=== PATIENT | female | born 1955 | race Caucasian/White ===

== ENCOUNTER 2024-04-04 18:16 | Inpatient (IN) | payer MEDICARE, BC ==
[~2024-04-04] VITALS: Ht 160 cm; Wt 88.2 kg
--- NOTE | 2024-04-04 18:41 | ED.PDOC ---
HPI Comments This is a 68-year-old female who comes in with chief complaint of chest pain. The patient states that the chest pressure started on 03/23. She states that she went to an urgent care on 03/28 at an EKG and some other tests that were done were negative. The patient states that the chest pain is somewhat pressure-like and radiating towards the left neck as well as the left shoulder. She denies any fever or chills. She states that she is going to be flying soon and she wants to make sure that she is clear. She denies any leg pain Chief Complaint: Chest Pain Time Seen by MD: 18:20 Primary Care Provider: [facility] IN [facility] Reviewed Notes: Nurses Notes, Medications, Allergies (Allergies to albuterol) Allergies: Coded Allergies: Albuterol (Verified Allergy, Unknown, 04/04/24) Information Source: Patient Mode of Arrival: Ambulatory Severity: Moderate Timing: Days Duration: Intermittent Prehospital treatment: None Location: Chest (L) Radiation: Shoulder (L), Arm (L) Quality: Squeezing, Pressure Onset: At Rest Cardiac Risk Factors: Hyperlipidemia, HTN PE Risk Factors: None History of: Similar pain in past Modifying Factors: Nothing Associated Signs and Symptoms: SOB, Other (Fatigue) Past Medical History PAST MEDICAL HISTORY: High Lipids, HTN Surgical History: Tonsillectomy Surgical History (Other): Left hip replacement, right knee surgery CODE INSPECTOR History: No Pertinent CODE INSPECTOR History Family History Family History: Family hx of DM, Family hx of heart philip Social History Smoker: Non-Smoker Alcohol: Occasionally Drugs: Denies Drug Use Lives In: Home Constitutional: reports: weakness; denies: chills, diaphoresis, fatigue, fever, malaise, sweats, others EENTM: denies: blurred vision, double vision, ear bleeding, ear discharge, ear drainage, ear pain, ear ringing, eye pain, eye redness, hearing loss, mouth pain, mouth swelling, nasal discharge, nose bleeding, nose congestion, nose pain, photophobia, tearing, throat pain, throat swelling, voice changes, others Respiratory: reports: shortness of breath; denies: cough, hemoptysis, orthopnea, SOB at rest, SOB with excertion, stridor, wheezing, others Cardiovascular: reports: chest pain; denies: dizzy spells, diaphoresis, Dyspnea on exertion, edema, irregular heart beat, left arm pain, lightheadedness, palpitations, PND, syncope, others Gastrointestinal: denies: abdomen distended, abdominal pain, blood streaked bowels, constipated, diarrhea, dysphagia, difficulty swallowing, hematemesis, melena, nausea, poor appetite, poor fluid intake, rectal bleeding, rectal pain, vomiting, others Genitourinary: denies: abnormal vagina bleeding, burning, dyspareunia, dysuria, flank pain, frequency, hematuria, incontinence, pain, , vagina discharge, urgency, others Neurological: denies: dizziness, fainting, headache, left sided numbness, left sided weakness, numbness, paresthesia, pre-existing deficit, right sided numbness, right sided weakness, seizure, speech problems, tingling, tremors, weakness, others Musculoskeletal: denies: back pain, gout, joint pain, joint swelling, muscle pain, muscle stiffness, neck pain, others Integumetry: denies: bruises, change in color, change in hair/nails, dryness, laceration, lesions, lumps, rash, wounds, others Allergic/Immunocompromised: denies: Difficulty Healing, Frequent Infections, Hives, Itching, others Hematologic/Lymphatic: denies: anemia, blood clots, easy bleeding, easy bruising, swollen glands, others Endocrine: denies: excessive hunger, excessive sweating, excessive thirst, excessive urination, flushing, intolerance to cold, intolerance to heat, une xplained weight gain, unexplained weight loss, others Psychiatric: denies: anxiety, bipolar disorder, depression, hopeless, panic disorder, schizophrenia, sleepless, suicidal, others Physical Exam General Appearance: Moderate Distress HEENT: Normal ENT Inspection, Pharynx Normal, TMs Normal Neck: Full Range of Motion, Non-Tender, Normal, Normal Inspection Respiratory: Chest Non-Tender, Lungs Clear, No Accessory Muscle Use, No Respiratory Distress, Normal Breath Sounds Cardiovascular: No Edema, No JVD, No Murmur, No Gallop, Normal Peripheral Pulses, Regular Rate/Rhythm Breast Exam: Deferred Gastrointestinal: No Organomegaly, Non Tender, No Pulsatile Mass, Normal Bowel Sounds, Soft Genitalia: Deferred Pelvic: Deferred Rectal: Deferred Extremities: No calf tenderness, Normal capillary refill, Normal inspection, Normal range of motion, Non-tender, No pedal edema Musculoskeletal : Apperance: Normal Neurologic: Alert, compensator II-XII nml as Tested, No Motor Deficits, Normal Affect, Normal Mood, No Sensory Deficits Cerebellar Function: Normal Reflexes: Normal Skin: Dry, Normal Color, Warm Lymphatic: No Adenopathy EKG EKG : Pulse Rate (adult): 82 [place]: RAD Cardiac Rhythm: NSR ST: Nonsp Was a procedure done? Was a procedure done?: No CP Differential Dx Differential Diagnosis: Angina, Electrolyte Disorder, PR, Pulmonary Embolus Differential Diagnosis: CHF Differential Diagnosis: Pericarditis X-Ray, Labs, Meds, VS Vital Signs Date Time Temp Pulse Resp B/P (MAP) Pulse Ox O2 Delivery O2 Flow Rate FiO2 04/04/24 19:10 80 04/04/24 18:57 82 18 97 Room Air* 0 21 04/04/24 18:56 98.2 82 18 157/92 (113) 97 98.2 04/04/24 18:41 82 04/04/24 18:21 82 04/04/24 18:19 97.6 89 18 141/88 (105) 98 Lab Test 04/04/24 19:13 04/04/24 18:28 Range/Units Troponin I High Sensitivity 5 5 </=34 ng/L White Blood Count 4.3 L 4.4-10.8 10^3/uL Red Blood Count 4.66 4.0-5.20 10^6/uL Hemoglobin 14.6 12.2-16.2 g/dL Hematocrit 44.2 36.0-46.0 % Mean Corpuscular Volume 95.0 80.0-100.0 fL Mean Corpuscular Hemoglobin 31.4 28.0-32.0 pg Mean Corpuscular Hemoglobin Concent 33.1 32.0-36.0 g/dL Red Cell Distribution Width 13.1 11.8-14.3 % Platelet Count 303 140-450 10^3/uL Mean Platelet Volume 7.5 6.9-10.8 fL Neutrophils (%) (Auto) 41.4 37.0-80.0 % Lymphocytes (%) (Auto) 47.0 10.0-50.0 % Monocytes (%) (Auto) 8.8 0.0-12.0 % Eosinophils (%) (Auto) 2.3 0.0-7.0 % Basophils (%) (Auto) 0.5 0.0-2.0 % Neutrophils # (Auto) 1.8 1.6-8.6 10 ^3/uL Lymphocytes # (Auto) 2.0 0.4-5.4 10 ^3/uL Monocytes # (Auto) 0.4 0-1.3 10 ^3/uL Eosinophils # (Auto) 0.1 0-0.8 10 ^3/uL Basophils # (Auto) 0 0-0.2 10 ^3/uL Nucleated Red Blood Cells 0.1 % D-Dimer, Quantitative 0.39 0.0-0.49 mg/L FEU Sodium Level 140 136-145 mmol/L Potassium Level 4.2 3.5-5.1 mmol/L Chloride Level 103 98-107 mmol/L Carbon Dioxide Level 31 20-31 mmol/L Anion Gap 6 5-15 Blood Urea Nitrogen 19 9-23 mg/dL Creatinine 0.83 0.550-1.02 mg/dL Glomerular Filtration Rate Calc 76 >90 mL/min BUN/Creatinine Ratio 22.9 H 10.0-20.0 Serum Glucose 109 H 74-106 mg/dL Calcium Level 10.4 8.7-10.4 mg/dL Total Bilirubin 0.6 0.2-1.0 mg/dL Aspartate Amino Transferase (AST) 16 13-40 U/L Alanine Aminotransferase (ALT) 25 7-40 U/L Alkaline Phosphatase 89 46-116 U/L Total Protein 7.1 5.7-8.2 g/dL Albumin 5.0 H 3.2-4.8 g/dL Current Medications Medications (Trade) Dose Ordered Sig/Jose De Jesus Route Start Time Stop Time Status Last Admin Aspirin 162 mg ONCE ONCE PO 04/04/24 18:45 04/04/24 18:46 DC 04/04/24 18:55 The patient was given aspirin here in the emergency department's An IV Hep-Lock was established. The troponin level x2 is negative The D-dimer is negative The chemistry panel is within normal limits Because of the persistent chest pain we are going to admit the patient to the hospitalist A cardiology consult will be obtained Images Reviewed?: Images reviewed and evaluated by me Time of 1ST Reevaluation: 18:41 Reevaluation 1ST: Unchanged Patient Education/Counseling: Diagnosis, Treatment, Prognosis Family Education/Counseling: No Family Present Departure 1 Departure Time of Disposition: 21:05 Impression: Primary Impression: Acute coronary syndrome Disposition: 09 ADMITTED INPATIENT Admit to: Tele Condition: Fair Critical Care Note Critical Care Time?: No Stability Stability form required: Yes Unstable for transfer: Telemetry monitoring (Telemetry monitoring required), ED Physician Assesment (Clinical assesment) Heart Score Heart Score: Heart Score Response (Comments) Value History Moderate Suspicious 1 EKG Repolarization Disturb 1 Age >65 2 Risk Factors >3 or Hx ASHD 2 Troponin Normal limit 0 Total 6 JEYSON IVEY MD Apr 04, 2024 18:41
--- NOTE | 2024-04-04 18:42 | DVH ---
CHEST RADIOGRAPH Indication: CP Technique: Single frontal view of the chest was obtained Comparison: None FINDINGS: Lines and Tubes: None Lungs: No focal consolidation. Pleura: No effusion. No pneumothorax. Cardiomediastinal contours: Unremarkable Bones: No acute osseous abnormality. IMPRESSION: No acute cardiopulmonary disease.
[2024-04-04] MEDS: ASPirin 81 mg TAB PO ONE (18:55)
[2024-04-04 18:57] VITALS: PULSE 82; RESP 18; O2SAT 97
[2024-04-04 19:01] LABS: Basophils # (auto) 0 10 ^3/uL (0-0.2); Basophils % (auto) 0.5 % (0.0-2.0); Eosinophils # (auto) 0.1 10 ^3/uL (0-0.8); Eosinophils % (auto) 2.3 % (0.0-7.0); Hematocrit 44.2 % (36.0-46.0); Hemoglobin 14.6 g/dL (12.2-16.2); Mean Corpuscular Hemoglobin 31.4 pg (28.0-32.0); Mean Corpuscular Hgb Conc. 33.1 g/dL (32.0-36.0); Monocytes # (auto) 0.4 10 ^3/uL (0-1.3); Monocytes % (auto) 8.8 % (0.0-12.0); Neutrophils # (auto) 1.8 10 ^3/uL (1.6-8.6); Neutrophils % (auto) 41.4 % (37.0-80.0); Nucleated Red Blood Cells % 0.1 %; Platelet Count (auto) 303 10^3/uL (140-450); Red Blood Cells 4.66 10^6/uL (4.0-5.20); Red Cell Distribution Width 13.1 % (11.8-14.3); White Blood Cell 4.3 10^3/uL (4.4-10.8)
--- NOTE | 2024-04-04 19:11 | ECG ---
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
[2024-04-04 19:16] LABS: Alanine Aminotransferase 25 U/L (7-40); Alkaline Phosphatase 89 U/L (46-116); Anion Gap 6 (5-15); Aspartate Aminotransferase 16 U/L (13-40); BUN/Creatinine Ratio 22.9 (10.0-20.0); Bilirubin, Total 0.6 mg/dL (0.2-1.0); Blood Urea Nitrogen 19 mg/dL (9-23); Calcium 10.4 mg/dL (8.7-10.4); Carbon Dioxide 31 mmol/L (20-31); Chloride 103 mmol/L (98-107); Potassium 4.2 mmol/L (3.5-5.1); Sodium 140 mmol/L (136-145); Total Protein 7.1 g/dL (5.7-8.2)
[2024-04-04 19:18] LABS: Glucose 109 mg/dL (74-106)
[2024-04-04] MEDS ORDERED: NITROGLYCERIN 0.4 MG SL TAB SL PRN (22:45)
[2024-04-04] MEDS ORDERED: MORPHINE SULFATE INJ 2 MG/ml SYRG IV PRN (22:45)
[2024-04-04 23:02] LABS: Triglycerides 150 mg/dL (< 150)
[2024-04-04 23:04] LABS: HDL Cholesterol 59 mg/dL (40-59)
--- NOTE | 2024-04-04 23:04 | DVHHPRES ---
History of Present Illness Resident Creating Document: DANIELLE BALDERAS RESIDENT History of Present Illness This is a 68-year-old female with past medical history of hypertension, dyslipidemia, prediabetes, GERD who presented to the ED for left-sided chest pain. The patient states that symptoms started two weeks ago characterize by sharp epigastric/chest pain and discomfort that got better initially over these but then came back associated with fatigue and shortness of breath on exertion. The patient also reported that two days ago the pain was more localized in the left side of the chest radiating to the neck, left shoulder and back. Patient states usually the soreness collapsed for 24 hours and can wean off and come back once again. The patient denies fever/chills, shortness of breath, abdominal pain or any other symptoms at this time. Initial labs CBC and BNP were grossly unremarkable, troponins came back negative, D-dimer was negative. EKG was reviewed showing sinus rhythm with nonspecific T-wave inversion in V2-V3 but no ST segment depression or elevation at this time. Initial chest x-ray was grossly clear without evidence of congestion or consolidations. Upon my examination, the patient denies chest pain at this time but does report kind of a soreness in the left side of the chest that radiates to the left shoulder and back. We will admit the patient for further assessment and management and rule out any potential cardiac etiology. We will place the patient on telemetry just to monitor cardiac rhythm for 12+ hours since the patient reported also palpitations but not at this time. If overnight telemetry monitor he is unremarkable with no arrhythmias detected discontinue telemetry. Past surgical history: Left hip replacement eight years ago Home medications: Amlodipine 5 mg daily, lisinopril 5 mg daily, atorvastatin 40 mg daily, omeprazole 40 mg daily Cardiovascular: HTN, hyperipidemia GI: GERD Endocrine: Other (Prediabetes) Past Surgical History: Total hip replacement (Right hip replacement eight years ago) Family History: None Smoke: No ALCOHOL: none Drugs: None Lives: with Family Domestic Violence: Neg Review of Systems Constitutional: No: Fever, Chills, Sweats, Weakness, Malaise, Other Eyes: No: Pain, Vision change, Conjunctivae inflammation, Eyelid inflammation, Other, Redness ENT: No: Ear pain, Ear discharge, Nose pain, Nose discharge, Nose congestion, Mouth pain, Mouth swelling, Throat pain, Throat swelling, Other Respiratory: No: Cough, Dry, Shortness of breath, SOB with excertion, Wheezing, Hemoptysis, Pleuritic Pain, Sputum, Wheezing, Other Cardiovascular: Chest Pain (Chest soreness); No: Palpitations, Orthopnea, Paroxysmal Noc. Dyspnea, Edema, Lt Headedness, Other Gastrointestinal: No: Nausea, Vomiting, Abdominal Pain, Diarrhea, Constipation, Melena, Hematochezia, Other Genitourinary: No Dysuria, No Frequency, No Incontinence, No Hematuria, No Retention, No Other Musculoskeletal: No: other, neck pain, shoulder pain, arm pain, back pain, hand pain, leg pain, foot pain Skin: No: Rash, Lesions, Jaundice, Bruising, Other Neurological: No: Weakness, Numbness, Incoordination, Change in speech, Confusion, Seizures, Other Allergies: Coded Allergies: Albuterol (Verified Allergy, Unknown, 04/04/24) Exam Vital Signs Vital Signs Date Time Temp Pulse Resp B/P (MAP) Pulse Ox O2 Delivery O2 Flow Rate FiO2 04/04/24 21:26 67 04/04/24 18:57 18 97 Room Air* 0 21 04/04/24 18:56 98.2 157/92 (113) 98.2 General Appearance: Alert, Oriented X3, Cooperative, No acute distress HEENT: Atraumatic, PERRLA, EOMI, Mucous membr. moist/pink Respiratory: Clear to auscultation, Normal air movement Cardiovascular: Regular rate, Normal S1, Normal S2, No murmurs Abdominal: Normal bowel sounds, Soft, No tenderness, No hepatospenomegaly Extremities: No clubbing, No cyanosis, No edema, Normal pulses, No tenderness/swelling Skin: No rashes, No breakdown, No significant lesion Neuro: Normal gait, Normal speech, Strength at 5/5 X4 ext, Normal tone, Sensation intact, Cranial nerves 3-12 NL, Reflexes 2+ Psych/Mental Status: Mental status NL, Mood NL Labs/Xrays Labs Test 04/04/24 19:13 04/04/24 18:28 Range/Units Troponin I High Sensitivity 5 </=34 ng/L White Blood Count 4.3 L 4.4-10.8 10^3/uL Red Blood Count 4.66 4.0-5.20 10^6/uL Hemoglobin 14.6 12.2-16.2 g/dL Hematocrit 44.2 36.0-46.0 % Mean Corpuscular Volume 95.0 80.0-100.0 fL Mean Corpuscular Hemoglobin 31.4 28.0-32.0 pg Mean Corpuscular Hemoglobin Concent 33.1 32.0-36.0 g/dL Red Cell Distribution Width 13.1 11.8-14.3 % Platelet Count 303 140-450 10^3/uL Mean Platelet Volume 7.5 6.9-10.8 fL Neutrophils (%) (Auto) 41.4 37.0-80.0 % Lymphocytes (%) (Auto) 47.0 10.0-50.0 % Monocytes (%) (Auto) 8.8 0.0-12.0 % Eosinophils (%) (Auto) 2.3 0.0-7.0 % Basophils (%) (Auto) 0.5 0.0-2.0 % Neutrophils # (Auto) 1.8 1.6-8.6 10 ^3/uL Lymphocytes # (Auto) 2.0 0.4-5.4 10 ^3/uL Monocytes # (Auto) 0.4 0-1.3 10 ^3/uL Eosinophils # (Auto) 0.1 0-0.8 10 ^3/uL Basophils # (Auto) 0 0-0.2 10 ^3/uL Nucleated Red Blood Cells 0.1 % D-Dimer, Quantitative 0.39 0.0-0.49 mg/L FEU Sodium Level 140 136-145 mmol/L Potassium Level 4.2 3.5-5.1 mmol/L Chloride Level 103 98-107 mmol/L Carbon Dioxide Level 31 20-31 mmol/L Anion Gap 6 5-15 Blood Urea Nitrogen 19 9-23 mg/dL Creatinine 0.83 0.550-1.02 mg/dL Glomerular Filtration Rate Calc 76 >90 mL/min BUN/Creatinine Ratio 22.9 H 10.0-20.0 Serum Glucose 109 H 74-106 mg/dL Calcium Level 10.4 8.7-10.4 mg/dL Total Bilirubin 0.6 0.2-1.0 mg/dL Aspartate Amino Transferase (AST) 16 13-40 U/L Alanine Aminotransferase (ALT) 25 7-40 U/L Alkaline Phosphatase 89 46-116 U/L Total Protein 7.1 5.7-8.2 g/dL Albumin 5.0 H 3.2-4.8 g/dL Assessment/Plan Assessment/Plan Assessment/plan Acute chest pain R/O ACS or any cardiac etiology Chest pain possibly due to anxiety Ruled out pulmonary embolism -patient reporting left-sided chest soreness radiating to the left shoulder and back -EKG showing sinus rhythm with T-wave inversions in V2-V3 but no ST segment elevation or depression -troponins came back negative -initial chest x-ray showed no evidence of consolidations or congestion -D-dimer was negative -order echocardiogram -placed the patient on telemetry used to have a 12 hour continuous cardiac monitoring to detect any possible arrhythmia, DC tele if no arrhythmias reported a.m. -Start aspirin 81mg daily -Control BP Primary hypertension -amlodipine 5 mg daily -start lisinopril 5 mg daily -monitor blood pressure closely Dyslipidemia -ordered lipid panel -atorvastatin 40 mg daily GERD -start pantoprazole 40 mg p.o. daily Prediabetes -ordered hemoglobin A1c -monitor blood glucose closely Goals of care discussed with the patient at bedside for >25min, FULL CODE Plan discussed with Dr. Gonzalez Plan discussed with: Patient My Orders Orders - DANIELLE BALDERAS RESIDENT Procedure Category Date Status Time Admit ADMIT 04/04/24 Transmitted 22:35 Code Status CODE 04/04/24 Transmitted 22:35 Vital Signs [facility] [place] 04/04/24 Transmitted 22:35 Review Orders With [facility] [place] 04/04/24 Transmitted Adm. 22:35 Encourage Activity As CARLOS 04/04/24 Transmitted Tolerate 22:35 Regular Diet DIET 04/05/24 Transmitted Breakfast Acetaminophen Tablet PHA 04/04/24 Transmitted (Tylenol Tablet) 22:45 Notify Md Of Changes [facility] [place] 04/04/24 Transmitted From Base 22:35 Advance Directive [facility] [place] 04/04/24 Transmitted 22:35 Echo 2d Mode Cardiac US 04/04/24 Verified DOP 22:35 Urinalysis LAB 04/04/24 Verified 22:35 Lipid Panel LAB 04/04/24 Verified 22:35 Patient Condition ORDERS 04/04/24 Verified 22:35 Allergies CARLOS 04/04/24 Verified 22:35 Drug Screen LAB 04/04/24 Verified 22:35 Hemoglobin A1c LAB 04/04/24 Verified 22:35 Nitroglycerin PHA 04/04/24 Verified Sublingual (Ntrostat 22:45 Morphine Sulfate PHA 04/04/24 Verified Injection 22:45 Notify Md Of Changes CARLOS 04/04/24 Verified From Base 22:35 Trim Setter Helper For CARLOS 04/04/24 Verified 24 Hours 22:35 Date of Service: Apr 04, 2024 Billing Provider: JIGNESH GONZALEZ MD Common Visit Codes: [id number] INP/OBS CARE (HIGH) DANIELLE BALDERAS RESIDENT Apr 04, 2024 23:04 JIGNESH GONZALEZ MD Apr 05, 2024 23:23
[2024-04-04 23:06] LABS: Cholesterol 206 mg/dL (< 200); LDL Cholesterol 139 mg/dL (< 100)
[2024-04-04] MEDS: amLODIPine BESYLATE 5 MG TAB PO SCH (23:39)
[2024-04-05] VITALS (10 sets, daily range): BP systolic 106–145; BP diastolic 76–90; PULSE 14–82; RESP 16–19; TEMP 36.7; O2SAT 82–99
[2024-04-05 00:58] LABS: Erythrocyte Sedimentation Rate 10 mm/hr (0-20)
[2024-04-05] MEDS ORDERED: AMLO1TAB22 PO (03:32)
[2024-04-05] MEDS ORDERED: OMEP-335 PO (03:32)
[2024-04-05] MEDS ORDERED: LISI-275 PO (03:32)
[2024-04-05] MEDS ORDERED: ATOR40TA52 PO (03:32)
[2024-04-05] MEDS: ACETAMINOPHEN 325 MG TAB PO PRN (04:17)
--- NOTE | 2024-04-05 09:20 | ECG ---
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
[2024-04-05 09:29] LABS: Urine Bacteria None Seen /hpf (None Seen)
[2024-04-05 09:41] LABS: Urine Blood Negative /uL (Negative); Urine Clarity Clear (Clear); Urine Color Yellow (Yellow); Urine Protein, UAD Negative (Negative); Urine Squamous Epithelial Cell FEW /hpf (<5); Urine Urobilinogen Normal (Negative); Urine WBC 23 /HPF (0-5)
[2024-04-05 10:25] LABS: Amphetamine Screen, Urine Neg (NEGATIVE); Barbiturate Scree,Urine Neg (NEGATIVE); Benzodiazephine Screen, Urine Neg (NEGATIVE); Cannabinoid Screen, Urine Neg (NEGATIVE); Cocaine Screen, Urine Neg (NEGATIVE); Opiate Scree,Urine Neg (NEGATIVE); Phencyclidine Screen, Urine Neg (NEGATIVE)
[2024-04-05] MEDS: ASPirin 81 mg TAB PO SCH (10:49)
[2024-04-05] MEDS: LISINOPRIL 5 MG TAB PO SCH (10:52)
[2024-04-05] MEDS: PANTOPRAZOLE 40 MG/10 ML VIAL INJ IV ONE (12:15)
--- NOTE | 2024-04-05 12:34 | ECG ---
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
--- NOTE | 2024-04-05 12:42 | ECG ---
[facility] Test Date: 2024-04-05 Test Time: 12:40:34 Pat Name: CHAPARRITA HOPKINS Department: Room: [facility] Gender: F Shoe Trimmer: : 1955 Requested By: TERRANCE HARMON Order Number: [id number] Reading MD: Heath Baron Measurements Intervals [place] Rate: 73 P: 60 [place]: 157 QRS: -28 QRSD: 91 T: 59 QT: 403 QTc: 444 Interpretive Statements Sinus rhythm Probable left atrial enlargement Borderline left axis deviation Low voltage, precordial leads Abnormal R-wave progression, late transition Nonspecific T abnormalities, anterior leads Electronically Signed On 04-08-2024 8:13:09 PST by Heath Baron Please click the below link to view image of tracing.
[2024-04-05] MEDS: SUCRALFATE 1 GM/10 ML ORAL SUSP PO SCH (14:18)
--- NOTE | 2024-04-05 15:12 | DVHSR ---
APPROVED REPORT EXAM: LIMITED Two-dimensional and M-mode echocardiogram with Doppler and color Doppler. Blood Pressure: 108/78 mmHg INDICATION assess LVEF no echo baseline RISK FACTORS Height: 108, Weight: 78 DIMENSIONS LVDd4.0 (3.8-5.7cm)LA (2D)3.1 (1.9-4.0cm)Aortic Root3.3 (2.0-3.7cm) LVDs2.1 (2.5-4.0cm)LA (MM) (1.9-4.0cm)Aortic Cusp Exc1.8 (1.5-2.0cm) EF (%) 60.0 (55-70%)Rt. Atrium (1.9-4.0cm)Asc. Aorta3.3 cm IVSd1.3 (0.7-1.1cm)RV (D)3.0 (1.8-2.4cm) PWd0.9 (0.7-1.1cm) Mitral Valve MitralMitral Stenosis E wave0.44m/sMV Mean GR.mmHg A wave0.90m/sMV Peak GR.mmHg E/A ratio0.52D MVAcm2 DECEL [id number] 1/2 Timems Aortic Valve Aortic ValveAortic Stenosis V11.18m/Shruthi Mean GR.4mmHg V21.22m/Shruthi Peak GR.6mmHg LVOT Diameter2.1 (1.8-2.4cm)Doppler AVA3.35cm2 Pulmonic Valve V20.78m/s Tricuspid Valve TR Velocity2.24m/s [id number] Conclusion lvef 65% by visual estimate mild lvh normal RV function, no severe valve abnormalities noted
--- NOTE | 2024-04-05 15:35 | DVHDSRES ---
Discharge Summary Date of Admission Resident Creating Document: DANIELLE BALDERAS RESIDENT Apr 04, 2024 at 22:35 Date of Discharge: Apr 05, 2024 Labs/Diagnostic Data: Laboratory Results Test 04/05/24 09:48 04/05/24 08:54 04/04/24 23:53 04/04/24 19:13 Magnesium Level 2.0 mg/dL (1.6-2.6) Creatine Kinase 69 U/L (34-145) Urine Color Yellow (Yellow) Urine Clarity Clear (Clear) Urine pH 6.0 (5.0-9.0) Urine Specific [place] 1.030 (1.001-1.035) Urine Protein Negative (Negative) Urine Ketones Negative (Negative) Urine Blood Negative /uL (Negative) Urine Nitrite Negative (Negative) Urine Bilirubin Negative (Negative) Urine Urobilinogen Normal mg/dL (Negative) Urine Leukocyte Esterase 2+ /uL (Negative) Urine RBC 2 /hpf (0 - 4) Urine Microscopic WBC 23 /HPF (0-5) Urine Squamous Epithelial Cells Few /hpf (<5) Urine Bacteria None seen /hpf (None Seen) Urine Glucose Normal mg/dL (Normal) Urine Opiates Screen Neg (NEGATIVE) Urine Fentanyl Screen Neg (NEGATIVE) Urine Barbiturates Screen Neg (NEGATIVE) Urine Phencyclidine Screen Neg (NEGATIVE) Urine Amphetamines Screen Neg (NEGATIVE) Urine Benzodiazepines Screen Neg (NEGATIVE) Urine Cocaine Screen Neg (NEGATIVE) Urine Cannabinoids Screen Neg (NEGATIVE) Erythrocyte Sedimentation Rate 10 mm/hr (0-20) C-Reactive Protein High Sensitivity 0.06 mg/dL (<1.0) Troponin I High Sensitivity 5 ng/L (</=34) Triglycerides Level 150 mg/dL (< 150) Cholesterol Level 206 mg/dL (< 200) LDL Cholesterol 139 mg/dL (< 100) HDL Cholesterol 59 mg/dL (40-59) Test 04/04/24 18:28 White Blood Count 4.3 10^3/uL (4.4-10.8) Red Blood Count 4.66 10^6/uL (4.0-5.20) Hemoglobin 14.6 g/dL (12.2-16.2) Hematocrit 44.2 % (36.0-46.0) Mean Corpuscular Volume 95.0 fL (80.0-100.0) Mean Corpuscular Hemoglobin 31.4 pg (28.0-32.0) Mean Corpuscular Hemoglobin Concent 33.1 g/dL (32.0-36.0) Red Cell Distribution Width 13.1 % (11.8-14.3) Platelet Count 303 10^3/uL (140-450) Mean Platelet Volume 7.5 fL (6.9-10.8) Neutrophils (%) (Auto) 41.4 % (37.0-80.0) Lymphocytes (%) (Auto) 47.0 % (10.0-50.0) Monocytes (%) (Auto) 8.8 % (0.0-12.0) Eosinophils (%) (Auto) 2.3 % (0.0-7.0) Basophils (%) (Auto) 0.5 % (0.0-2.0) Neutrophils # (Auto) 1.8 10 ^3/uL (1.6-8.6) Lymphocytes # (Auto) 2.0 10 ^3/uL (0.4-5.4) Monocytes # (Auto) 0.4 10 ^3/uL (0-1.3) Eosinophils # (Auto) 0.1 10 ^3/uL (0-0.8) Basophils # (Auto) 0 10 ^3/uL (0-0.2) Nucleated Red Blood Cells 0.1 % D-Dimer, Quantitative 0.39 mg/L FEU (0.0-0.49) Sodium Level 140 mmol/L (136-145) Potassium Level 4.2 mmol/L (3.5-5.1) Chloride Level 103 mmol/L (98-107) Carbon Dioxide Level 31 mmol/L (20-31) Anion Gap 6 (5-15) Blood Urea Nitrogen 19 mg/dL (9-23) Creatinine 0.83 mg/dL (0.550-1.02) Glomerular Filtration Rate Calc 76 mL/min (>90) BUN/Creatinine Ratio 22.9 (10.0-20.0) Serum Glucose 109 mg/dL (74-106) Hemoglobin A1c 5.5 % A1C (<5.7) Calcium Level 10.4 mg/dL (8.7-10.4) Total Bilirubin 0.6 mg/dL (0.2-1.0) Aspartate Amino Transferase (AST) 16 U/L (13-40) Alanine Aminotransferase (ALT) 25 U/L (7-40) Alkaline Phosphatase 89 U/L (46-116) B-Type Natriuretic Peptide 13.09 pg/mL (0-100) Total Protein 7.1 g/dL (5.7-8.2) Albumin 5.0 g/dL (3.2-4.8) Other Laboratory Tests 04/04/24 18:28 Brief Hx & Hospital Course: This is a 68-year-old female with past medical history of hypertension, dyslipidemia, prediabetes, GERD who presented to the ED for left-sided chest pain. The patient states that symptoms started two weeks ago characterize by sharp epigastric/chest pain and discomfort that got better initially over these but then came back associated with fatigue and shortness of breath on exertion. The patient also reported that two days ago the pain was more localized in the left side of the chest radiating to the neck, left shoulder and back. Patient states usually the soreness collapsed for 24 hours and can wean off and come back once again. The patient denies fever/chills, shortness of breath, abdominal pain or any other symptoms at this time. Initial labs CBC and BNP were grossly unremarkable, troponins came back negative, D-dimer was negative. EKG was reviewed showing sinus rhythm with nonspecific T-wave inversion in V2-V3 but no ST segment depression or elevation at this time. Initial chest x-ray was grossly clear without evidence of congestion or consolidations. Upon my examination, the patient denies chest pain at this time but does report kind of a soreness in the left side of the chest that radiates to the left shoulder and back. We will admit the patient for further assessment and management and rule out any potential cardiac etiology. We will place the patient on telemetry just to monitor cardiac rhythm for 12+ hours since the patient reported also palpitations but not at this time. If overnight telemetry monitor he is unremarkable with no arrhythmias detected discontinue telemetry. During the hospitalization, patient was admitted to telemetry unit. Initially EKG was completed which showed T-wave inversion in V2 and V3, otherwise no ST changes. Repeat EKG completed after 12 hours showed similar findings. Troponins were unremarkable, BNP WNL. Echocardiogram completed which showed lvef 65% by visual estimate, mild lvh, normal RV function. 10 year ASCVD score was 9.6 to 12.3%, patient was advised regarding continuing atorvastatin 40 mg daily and lifestyle modifications. Patient was diagnosed with chest pain likely secondary to GERD and anxiety. 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 Repeat EKG was unremarkable. Telemetry showed no events. Patient is also advised to follow up with Cardiology as outpatient for possible stress test. Given her symptoms of burping/bloating/distention, she has been advised outpatient GI follow up for possible EGD and H pylori stool test. 04/05/2024-patient is hemodynamically stable, clinically stable therefore is being discharged home with the recommendation to follow with Cardiology as outpatient, GI as outpatient, primary care physician within 7 days and discharge clinic appointment. Patient agreed to the plan. Discharge diagnosis: Acute chest pain secondary to GERD and anxiety Mixed hyperlipidemia Hypetension Prediabetes GERD Condition at Discharge: Stable Final Diagnosis/Problems List Acute chest pain secondary to GERD and anxiety Mixed hyperlipidemia Ruled out pulmonary embolism Ruled out pericarditis Hypetension Prediabetes GERD Discharge Disposition: Home Discharge Instruct/Medications Diet: Cardiac 2g Na,low cholest Activity: No Restrictions, As Tolerated Follow Up/Referral: Follow up with Cardiology as outpatient for outpatient stress test Follow up with GI as outpatient within 2 weeks Follow up with primary care physician within 7 days Follow up with [facility] clinic Medications: Continue home medications Discharge Statement: "Patient was advised to return to the ER or call 911 if any headaches, dizziness, shortness of breath, chest pain, abdominal pain, bleeding, fevers, or worsening of medical condition. Patient was counseled about treatment plan, medications, possible side effects, patientverbalized understanding. All questions were answered to the best of my ability. This discharge took greater then 30 minutes in planning, reviewing documentation, counseling the patient, and discussing with other team members." ASSESSMENT ASSESSMENT Assessment Acute chest pain ruled out ACS Ruled out pericarditis Chest pain possibly due to anxiety and GERD Ruled out pulmonary embolism Date of Service: Apr 05, 2024 Billing Provider: JACOB SELLERS MD Common Visit Codes: 03911-IQR/OBS DISCH DAY >30min TERRANCE HARMON Apr 05, 2024 15:35 JACOB SELLERS MD Apr 08, 2024 00:34
[2024-04-05] MEDS ORDERED: ATORVASTATIN 20 MG TAB PO SCH (22:00)
[2024-04-06] MEDS ORDERED: PANTOPRAZOLE 40 MG/10 ML VIAL INJ IV SCH (10:00)
--- NOTE | 2024-04-07 15:49 | ECG ---
[facility] Test Date: 2024-04-05 Test Time: 12:41:51 Pat Name: CHAPARRITA HOPKINS Department: Room: [facility]9T B Gender: F [employer]: : 1955 Requested By: TERRANCE HARMON Order Number: [id number] Reading MD: Heath Baron Measurements Intervals [place] Rate: 71 P: 56 [place]: 152 QRS: -30 QRSD: 92 T: 50 QT: 417 QTc: 454 Interpretive Statements Sinus rhythm Probable left atrial enlargement Left axis deviation Probable anterior infarct, age indeterminate Electronically Signed On 04-08-2024 8:13:21 PST by Heath Baron Please click the below link to view image of tracing.
== END 2024-04-05 16:57 | disposition home or self-care (01) | DRG 392 ==
LOC: ER 18:16 → OVERFLOW 22:35 → TELE-WESTW 23:58
PROVIDERS: ADMIT Student in an Organized Health Care Education/Training Program; ATTEND Student in an Organized Health Care Education/Training Program
DX: K21.9 Gastro-esophageal reflux disease without esophagitis (principal); Z96.642 Presence of left artificial hip joint; I10 Essential (primary) hypertension; F41.9 Anxiety disorder, unspecified; E78.2 Mixed hyperlipidemia; Z79.899 Other long term (current) drug therapy; Z83.3 Family history of diabetes mellitus
CPT/HCPCS: 36415; 71045; 80053; 80061; 80307; 81001; 82550; 83036; 83735; 83880; 84484; 85025; 85379; 85652; 86141; 93005; 93306; G0378; J2470